=== PATIENT | male | born 1970 | race Caucasian/White ===

== ENCOUNTER 2017-03-21 06:22 | Day surgery (SDC) | payer BC ==
[2017-03-21] MEDS ORDERED: MIDAZOLAM INJ 2 MG/2 ML VIAL (J2250) As Ordered ×2 (07:11→08:33)
[2017-03-21] MEDS ORDERED: fentaNYL 100 MCG/2 ML INJECTION (J3010) As Ordered ×2 (07:11→08:33)
[2017-03-21] MEDS ORDERED: CYCLOPENTOLATE 2% OPHTH SOLN 2ML BTL As Ordered (07:22)
[2017-03-21] MEDS ORDERED: TROPICAMIDE 1% OPHTH SOLN 2ML As Ordered (07:22)
[2017-03-21] MEDS ORDERED: PHENYLEPHRINE 2.5% OPHTH SOL 2ML As Ordered (07:22)
[2017-03-21] MEDS ORDERED: OFLOXACIN 0.3 % (OCUFLOX) OPTH SOL 5ML As Ordered (07:22)
[2017-03-21] MEDS ORDERED: LIDOCAINE 3.5 % 1ML OPHTH TOPICAL GEL As Ordered (07:22)
[2017-03-21] MEDS: PROPARACAINE 0.5% OPHTH SOL 15ML OD (07:31)
[2017-03-21] MEDS: OFLOXACIN 0.3 % (OCUFLOX) OPTH SOL 5ML OD (07:31)
[2017-03-21] MEDS: TROPICAMIDE 1% OPHTH SOLN 2ML OD (07:31)
[2017-03-21] MEDS: PHENYLEPHRINE 2.5% OPHTH SOL 2ML OD (07:32)
[2017-03-21] MEDS: POVIDONE-IODINE 5% OPHTH PREP SOL 30ML As Ordered (08:34)
[2017-03-21] MEDS: DUOVISC (0.50ML VISCOAT/0.55ML PROVISC) OPHTH KIT As Ordered (08:34)
[2017-03-21] MEDS: BALANCED SALT IRRIGATION SOLUTION 500ML BAG (FOR OR EYE MACHINE) As Ordered (08:34)
[2017-03-21] MEDS: CEFUROXIME 1MG/0.1ML INTRACAMERAL INJ As Ordered (08:35)
[2017-03-21] MEDS: ACETYLCHOLINE OPHTH SOLN 1% 2ML (MIOCHOL-E) As Ordered (08:35)
[2017-03-21] MEDS: LIDOCAINE 0.75%/EPINEPHRINE 0.025% IN BSS 1ML SYR INTRACAMERAL (OR ONLY) As Ordered (08:35)
[2017-03-25] MEDS ORDERED: PROPARACAINE 0.5% OPHTH SOL 15ML OD (07:00)
== END 2017-03-21 10:10 | disposition home or self-care (01) ==
LOC: M SDC 06:22
DX: H25.11 Age-related nuclear cataract, right eye (principal); Z98.890 Other specified postprocedural states; H52.211 Irregular astigmatism, right eye
CPT/HCPCS: 66984

== ENCOUNTER 2017-08-08 07:55 | Day surgery (SDC) | payer BC ==
[2017-08-08] MEDS: OFLOXACIN 0.3 % (OCUFLOX) OPTH SOL 5ML OS (08:44)
[2017-08-08] MEDS: PHENYLEPHRINE 2.5% OPHTH SOL 2ML OS (08:44)
[2017-08-08] MEDS: TROPICAMIDE 1% OPHTH SOLN 2ML OS (08:45)
[2017-08-08] MEDS: PROPARACAINE 0.5% OPHTH SOL 15ML OS (08:45)
[2017-08-08] MEDS ORDERED: MIDAZOLAM INJ 2 MG/2 ML VIAL (J2250) As Ordered (09:57)
[2017-08-08] MEDS ORDERED: fentaNYL 100 MCG/2 ML INJECTION (J3010) As Ordered (09:57)
[2017-08-08] MEDS: POVIDONE-IODINE 5% OPHTH PREP SOL 30ML As Ordered (10:11)
[2017-08-08] MEDS: LIDOCAINE 0.75%/EPINEPHRINE 0.025% IN BSS 1ML SYR INTRACAMERAL (OR ONLY) As Ordered (10:11)
[2017-08-08] MEDS: DUOVISC (0.50ML VISCOAT/0.55ML PROVISC) OPHTH KIT As Ordered (10:11)
[2017-08-08] MEDS: BALANCED SALT IRRIGATION SOLUTION 500ML BAG (FOR OR EYE MACHINE) As Ordered (10:11)
[2017-08-08] MEDS: CEFUROXIME 1MG/0.1ML INTRACAMERAL INJ As Ordered (10:12)
== END 2017-08-08 11:15 | disposition home or self-care (01) ==
LOC: M SDC 07:55
DX: H25.032 Anterior subcapsular polar age-related cataract, left eye (principal); H52.31 Anisometropia; H52.212 Irregular astigmatism, left eye
CPT/HCPCS: 66984

== ENCOUNTER → 2017-09-02 | Outpatient (REF) | payer BC | LOC: M SFHCLERA 10:49 | DX: J02.9 Acute pharyngitis, unspecified (principal) | CPT/HCPCS: 87804 ==